=== PATIENT | female | born 1945 | race Caucasian/White ===

== ENCOUNTER 2017-06-08 08:04 | Outpatient (CLI) | payer BC, OTHER | END 2017-06-08 17:49 | disposition home or self-care (01) | LOC: SMA 08:04 | PROVIDERS: ATTEND Obstetrics & Gynecology Gynecology | DX: Z12.31 Encounter for screening mammogram for malignant neoplasm of breast (principal) | CPT/HCPCS: G0202 ==

== ENCOUNTER 2018-08-14 08:19 | Outpatient (CLI) | payer BC, OTHER | END 2018-08-14 19:54 | disposition home or self-care (01) | LOC: SMA 08:19 | PROVIDERS: ATTEND Obstetrics & Gynecology Gynecology | DX: Z12.31 Encounter for screening mammogram for malignant neoplasm of breast (principal) | CPT/HCPCS: 77067 ==